=== PATIENT | male | born 1960 | race African-American/Black ===

== ENCOUNTER 2018-10-29 06:09 | Emergency (ER) | payer SELFPAY ==
[~2018-10-29] VITALS: Ht 180.3 cm; Wt 72.7 kg
[~2018-10-29 06:09] MED LIST: [UNRECOGNIZED DRUG - REMARK]
[2018-10-29] MEDS ORDERED: KETOROLAC TROMETHAMINE 60 MG/2 ML VIAL IM ONE (07:15)
[2018-10-29 08:49] VITALS: BP 147/103
== END 2018-10-29 09:05 | disposition home or self-care (01) ==
LOC: EMS 06:14
DX: S20.212A Contusion of left front wall of thorax, initial encounter (principal); F17.210 Nicotine dependence, cigarettes, uncomplicated; Z98.890 Other specified postprocedural states; Z85.89 Personal history of malignant neoplasm of other organs and systems; W01.198A Fall on same level from slipping, tripping and stumbling with subsequent striking against other object, initial encounter; Y93.89 Activity, other specified; Y92.89 Other specified places as the place of occurrence of the external cause; Y99.8 Other external cause status
CPT/HCPCS: 71101; 96372; 99283; 99406; J1885

== ENCOUNTER 2022-08-05 11:11 | Emergency (ER) | payer MEDICARE, OTHER ==
[~2022-08-05 11:11] MED LIST changes: +AZIT500T4 PO; +CEPH-582 PO; -[UNRECOGNIZED DRUG - REMARK]
== END 2022-08-05 11:30 | disposition left against medical advice (07) ==
LOC: EMS 11:20
DX: R04.0 Epistaxis (principal); Z53.21 Procedure and treatment not carried out due to patient leaving prior to being seen by health care provider

== ENCOUNTER 2024-07-21 16:09 | Emergency (ER) | payer MEDICARE, MEDICAID ==
[~2024-07-21] VITALS: Ht 180.3 cm; Wt 75.0 kg
[2024-07-21 16:13] VITALS: BP 116/60; PULSE 75; RESP 18; TEMP 98.5; O2SAT 99
[2024-07-21] MEDS ORDERED: ASPI-1444 PO (16:17)
[2024-07-21] MEDS ORDERED: LOSA-382 PO (16:17)
[2024-07-21] MEDS ORDERED: METO-408 PO (16:17)
[2024-07-21] MEDS ORDERED: AMLO10TA55 PO (16:17)
[2024-07-21] MEDS ORDERED: LEVE100S7 PO (16:17)
[2024-07-21] MEDS ORDERED: ATOR-2 PO (16:17)
[2024-07-21] MEDS ORDERED: BACL10TA PO (16:17)
== END 2024-07-21 18:02 | disposition home or self-care (01) ==
LOC: EMS 16:11
DX: H61.22 Impacted cerumen, left ear (principal); I10 Essential (primary) hypertension; F17.210 Nicotine dependence, cigarettes, uncomplicated; Z98.890 Other specified postprocedural states; Z86.73 Personal history of transient ischemic attack (TIA), and cerebral infarction without residual deficits; Z79.899 Other long term (current) drug therapy; Z79.82 Long term (current) use of aspirin
CPT/HCPCS: 69210; 99284; Z7502

== ENCOUNTER 2024-08-28 10:09 | Emergency (ER) | payer MEDICAID, MEDICARE ==
[~2024-08-28] VITALS: Ht 172.7 cm; Wt 79.5 kg
[~2024-08-28 10:09] MED LIST changes: +AMLO10TA55 PO; +ASPI-1444 PO; +ATOR-2 PO; -AZIT500T4 PO; +BACL10TA PO; -CEPH-582 PO; +LEVE100S7 PO; +LOSA-382 PO; +METO-408 PO
[2024-08-28] MEDS ORDERED: GABA-1181 PO (10:19)
[2024-08-28 11:28] VITALS: BP 152/95; PULSE 80; RESP 18; O2SAT 99
== END 2024-08-28 11:29 | disposition home or self-care (01) ==
LOC: EMS 10:13
DX: L60.2 Onychogryphosis (principal); J44.1 Chronic obstructive pulmonary disease with (acute) exacerbation; J45.901 Unspecified asthma with (acute) exacerbation; I10 Essential (primary) hypertension; G40.909 Epilepsy, unspecified, not intractable, without status epilepticus; F17.210 Nicotine dependence, cigarettes, uncomplicated; Z91.012 Allergy to eggs; Z79.82 Long term (current) use of aspirin; Z79.899 Other long term (current) drug therapy
CPT/HCPCS: 99281; Z7502

== ENCOUNTER 2025-02-17 19:53 | Emergency (ER) | payer MEDICARE ==
[~2025-02-17] VITALS: Ht 180.3 cm; Wt 72.1 kg
[~2025-02-17 19:53] MED LIST changes: +GABA-1181 PO
[2025-02-17 20:02] VITALS: BP 183/110; PULSE 108; RESP 18; TEMP 97.9; O2SAT 99
[2025-02-17] MEDS ORDERED: HYDROCODONE/ACETAMINOPHEN 5-325 MG TABLET PO ONE (20:15)
[2025-02-17 20:33] LABS: PLATELET COUNT (AUTO) 205 K/uL (150-450); RED BLOOD CELL COUNT(AUTO) 6.25 MIL/uL (4.50-5.90); RED CELL DISTRIBUTION WIDTH 15.8 % (11.5-14.5); WHITE BLOOD COUNT (AUTO) 7.1 K/uL (4.5-11.0)
[2025-02-17 20:50] LABS: ASPARTATE AMINOTRANSFERASE 25.0 U/L (15-37); CREATINE KINASE, TOTAL ONLY 231.0 U/L (39-308); TOTAL PROTEIN, SERUM 8.7 g/dL (6.4-8.2)
[2025-02-17 20:52] LABS: CALCIUM, TOTAL 9.6 mg/dL (8.8-10.5); CREATININE 1.33 mg/dL (0.60-1.30); GLOMERULAR FILTR. RATE CALC > 60 mL/min (>60); GLUCOSE,RANDOM 108 mg/dL (70-110); SODIUM SERUM 137 mmol/L (136-145); UREA NITROGEN, BLOOD 14 mg/dL (7-18)
[2025-02-17 21:00] LABS: TROPONIN I-HIGH SENSITIVITY 35 ng/L (<76)
== END 2025-02-17 21:21 | disposition left against medical advice (07) ==
LOC: EMS 19:53
DX: M62.838 Other muscle spasm (principal); M25.512 Pain in left shoulder; M79.602 Pain in left arm; R20.2 Paresthesia of skin; M54.2 Cervicalgia; I10 Essential (primary) hypertension; F17.210 Nicotine dependence, cigarettes, uncomplicated; Z79.82 Long term (current) use of aspirin; Z79.899 Other long term (current) drug therapy; Z86.73 Personal history of transient ischemic attack (TIA), and cerebral infarction without residual deficits; Z98.890 Other specified postprocedural states; Z91.012 Allergy to eggs
CPT/HCPCS: 71045; 80048; 80076; 82550; 83880; 84484; 85025; 85610; 85730; 93005; 99285; 36415-L1; 36415-TC